=== PATIENT | female | born 1980 | race African-American/Black ===

== ENCOUNTER 2024-01-21 14:29 | Inpatient (IN) | payer OTHER ==
[2024-01-21 15:22] VITALS: BMI 22.1
[2024-01-21] MEDS ORDERED: POLYETHYLENE GLYCOL (HEALTHYLAX) 3350 17 GM PACKET PO PRN (17:40)
[2024-01-21] MEDS ORDERED: IBUPROFEN 400 MG TABLET (FP) PO PRN (17:40)
[2024-01-21] MEDS ORDERED: NICOTINE POLACRILEX 2 MG LOZENGE BC PRN (17:40)
[2024-01-21] MEDS ORDERED: MAGNESIUM HYDROX 2400MG/30ML ORAL SUSPENSION 30 ML CUP PO PRN (17:40)
[2024-01-21] MEDS ORDERED: LOPERAMIDE HCL 2 MG CAPSULE PO PRN (17:40)
[2024-01-21] MEDS ORDERED: P-EPHED 60MG/TRIPROLIDI 2.5MG TABLET PO PRN (17:40)
[2024-01-21] MEDS ORDERED: BENZONATATE 200 MG CAPSULE PO PRN (17:40)
[2024-01-21] MEDS ORDERED: hydrOXYzine PAMOATE 25 MG CAPSULE (FP) PO PRN (17:40)
[2024-01-21] MEDS ORDERED: MAG HYDROX/AL HYDROX/SIMETH 30 ML UNIT-DOSE CUP PO PRN (17:40)
[2024-01-21] MEDS ORDERED: BENZOCAINE/MENTHOL (CHLORASEPTIC ) LOZENGE MM PRN (17:40)
[2024-01-21] MEDS ORDERED: guaiFENesin 600 MG TABLET.ER (FP) PO PRN (17:40)
[2024-01-21] MEDS ORDERED: amLODIPine BESYLATE 5 MG TABLET (FP) ONE (18:37)
[2024-01-21] MEDS: amLODIPine BESYLATE 5 MG TABLET (FP) PO ONE (18:39)
[2024-01-21] MEDS ORDERED: TUBERCULIN PPD 5 TU/0.1ML SYRINGE (IN PATIENT USE ONLY) ID ONE (21:41)
[2024-01-21] MEDS: THIAMINE 100 MG TABLET PO SCH (22:39)
[2024-01-21] MEDS: MELATONIN 5 MG TABLETS PO SCH (22:39)
[2024-01-22 10:24] LABS: HEMATOCRIT 36.3 % (32.4-45.2); HEMOGLOBIN 12.1 GM/dL (10.7-15.3); MCH 30.9 pg (25.7-33.7); MCHC 33.3 g/dl (32.0-36.0); MEAN PLT VOLUME 8.2 fl (7.5-11.1); PLATELET COUNT 284 10^3/uL (134-434); RDW 15.5 % (11.6-15.6); WHITE BLOOD COUNT 6.8 K/mm3 (4.0-10.0)
[2024-01-22] MEDS: PRENATAL VITAMINS W/ FOLIC ACID TABLET (FP) PO SCH (10:43)
[2024-01-22] MEDS: TUBERCULIN PPD 5 TU/0.1ML SYRINGE (IN PATIENT USE ONLY) ID ONE (10:49)
[2024-01-22 11:40] LABS: CHLORIDE 109 mmol/L (98-107); POTASSIUM 3.7 mmol/L (3.5-5.1); SODIUM 140 mmol/L (136-145)
[2024-01-22 12:04] LABS: GLUCOSE,RANDOM 104 mg/dL (74-106)
[2024-01-22 12:05] LABS: CALCIUM 8.3 mg/dL (8.5-10.1)
[2024-01-22 12:06] LABS: ALBUMIN 2.8 g/dl (3.4-5.0); ANION GAP 8 mmol/L (4-13); BLOOD UREA NITROGEN 11.1 mg/dL (7-18); CO2 23 mmol/L (21-32)
[2024-01-22 12:07] LABS: CREATININE 0.7 mg/dL (0.55-1.3); SGPT/ALT 26 U/L (13-61)
[2024-01-22 12:09] LABS: BILIRUBIN,TOTAL 0.2 mg/dL (0.2-1); SGOT/AST 16 U/L (15-37); TOT PROT 6.6 g/dl (6.4-8.2)
[2024-01-22 12:10] LABS: ALK PHOS 82 U/L (45-117)
[2024-01-22 12:19] LABS: SYPHILIS W/ RPR CONF NON-REACTIVE (NONREACTIVE)
[2024-01-22] MEDS: QUEtiapine FUMARATE 200 MG TABLET PO SCH (21:46)
[2024-01-24] MEDS ORDERED: BISMUTH SUBSALICYLATE 262 MG/15 ML BTL PO PRN (14:38)
[2024-01-24] MEDS ORDERED: DICYCLOMINE HCL 10 MG CAPSULE PO PRN (14:38)
[2024-01-24] MEDS ORDERED: guaiFENesin 600 MG TABLET.ER (FP) PO PRN (14:38)
[2024-01-24] MEDS ORDERED: ONDANSETRON *ODT* 4 MG TABLET SL PRN (14:38)
[2024-01-24] MEDS ORDERED: BENZONATATE 200 MG CAPSULE PO PRN (14:38)
[2024-01-24] MEDS ORDERED: chlordiazePOXIDE HCL 10 MG CAPSULE PO SCH (15:19)
[2024-01-24] MEDS: hydrOXYzine PAMOATE 25 MG CAPSULE (FP) PO PRN (15:49)
[2024-01-24] MEDS: chlordiazePOXIDE HCL 10 MG CAPSULE PO SCH ×2 (15:50→15:53)
[2024-01-24] MEDS: METHOCARBAMOL 500 MG TABLET PO PRN (15:50)
[2024-01-24 16:59] LABS: EPI CELLS 11 /uL (0-25.1); HYALINE CASTS 0 /uL (0-3.1); PH,URINE 7.5 (5.0-8.0); URINE APPEARANCE CLEAR; URINE BACTERIA 97 /uL (0-1359); URINE BILIRUBIN NEGATIVE (NEGATIVE); URINE COLOR YELLOW; URINE GLUCOSE (UA) NEGATIVE (NEGATIVE); URINE KETONE NEGATIVE (NEGATIVE); URINE LEUK ESTERASE NEGATIVE (NEGATIVE); URINE NITRITE NEGATIVE (NEGATIVE); URINE PROTEIN NEGATIVE (NEGATIVE); URINE RBC 7 /uL (0-23.9); URINE UROBILINOGEN 0.2 mg/dL (0.2-1.0); URINE WBC 2 /uL (0-25.8)
[2024-01-25] MEDS: chlordiazePOXIDE HCL 10 MG CAPSULE PO SCH (05:54)
[2024-01-25 10:49] LABS: INR 0.86 (0.83-1.09); PROTHROMBIN TIME (PATIENT) 9.9 SEC (9.7-13.0)
[2024-01-26] MEDS: chlordiazePOXIDE HCL 10 MG CAPSULE PO ONE (06:05)
[2024-01-26] MEDS: IBUPROFEN 600 MG TABLET (FP) PO PRN (13:44)
[2024-01-26] MEDS: LACTULOSE 20 GM/30 ML UDC (FOR ORAL USE ONLY) PO SCH (13:44)
[2024-01-28] MEDS: NICOTINE POLACRILEX 2 MG GUM BUC PRN (15:49)
[2024-01-28] MEDS: NICOTINE POLACRILEX 4 MG GUM BUC PRN (19:10)
[2024-01-30] MEDS: BACLOFEN 10 MG TABLET (FP) PO SCH (11:09)
[2024-01-31] MEDS: CHOLECALCIFEROL (VIT D3) 400 UNIT (10 MCG) TABLET PO SCH (18:00)
[2024-01-31] MEDS: QUEtiapine FUMARATE 300 MG TABLET PO SCH (21:10)
[2024-02-02 06:47] VITALS: RESP 18
[2024-02-03] MEDS ORDERED: ALBUTEROL SULFATE 0.021% (0.63 MG/3 ML) VIAL.NEB NEB PRN (11:59)
[2024-02-03] MEDS: ALBUTEROL SO4 HFA INHALER IH PRN (15:49)
[2024-02-04] MEDS: ACETAMINOPHEN 325 MG TABLET (FP) PO PRN (14:36)
[2024-02-04] MEDS: METHYL SALICYLATE/MENTHOL 30 GM TUBE TP SCH (15:04)
[2024-02-07] MEDS: NICOTINE POLACRILEX 4 MG LOZENGE BC PRN (21:01)
[2024-02-09 07:05] VITALS: TEMP 97.6
[2024-02-10 07:00] VITALS: BP 134/83; PULSE 90
== END 2024-02-10 10:15 | disposition home or self-care (01) | DRG 772 ==
LOC: YASAS 14:29 → Y3NR 18:20 → Y5N 01-24 13:00
PROVIDERS: ADMIT Allergy & Immunology; ATTEND Psychiatry & Neurology Pain Medicine
PROC: HZ42ZZZ Group Counseling for Substance Abuse Treatment, Cognitive-Behavioral (ICD-10-PCS; principal; 2024-01-21)
DX: F10.20 Alcohol dependence, uncomplicated (principal); F14.20 Cocaine dependence, uncomplicated; F17.210 Nicotine dependence, cigarettes, uncomplicated; F19.982 Other psychoactive substance use, unspecified with psychoactive substance-induced sleep disorder; F19.94 Other psychoactive substance use, unspecified with psychoactive substance-induced mood disorder; I10 Essential (primary) hypertension; E72.20 Disorder of urea cycle metabolism, unspecified; I45.81 Long QT syndrome; Z88.0 Allergy status to penicillin; Z88.8 Allergy status to other drugs, medicaments and biological substances
CPT/HCPCS: 36415; 71046-TC-FY; 80053; 80305; 80307; 81003; 81025; 82140; 82652; 83735; 85027; 85610; 86780; 86803; 87811; 93005; 93010; J0475

== ENCOUNTER 2024-04-25 18:53 | Inpatient (IN) | payer OTHER ==
[2024-04-25 19:45] VITALS: BMI 25.1
[2024-04-25] MEDS ORDERED: MAG HYDROX/AL HYDROX/SIMETH 30 ML UNIT-DOSE CUP PO PRN (21:23)
[2024-04-25] MEDS ORDERED: MAGNESIUM HYDROX 2400MG/30ML ORAL SUSPENSION 30 ML CUP PO PRN (21:23)
[2024-04-25] MEDS ORDERED: NALOXONE (NYS OPIOID OVERDOSE PROGRAM) 4 MG/0.1 ML SPRAY NS PRN (21:23)
[2024-04-25] MEDS ORDERED: ACETAMINOPHEN 325 MG TABLET (FP) PO PRN (21:23)
[2024-04-25] MEDS ORDERED: ONDANSETRON *ODT* 4 MG TABLET SL PRN (21:23)
[2024-04-25] MEDS ORDERED: guaiFENesin 600 MG TABLET.ER (FP) PO PRN (21:23)
[2024-04-25] MEDS ORDERED: POLYETHYLENE GLYCOL (HEALTHYLAX) 3350 17 GM PACKET PO PRN (21:23)
[2024-04-25] MEDS ORDERED: BENZOCAINE/MENTHOL (CHLORASEPTIC ) LOZENGE MM PRN (21:23)
[2024-04-25] MEDS ORDERED: BISMUTH SUBSALICYLATE 524 MG/30 ML PO PRN (21:23)
[2024-04-25] MEDS ORDERED: NICOTINE POLACRILEX 2 MG GUM BUC PRN (21:23)
[2024-04-25] MEDS ORDERED: IBUPROFEN 400 MG TABLET (FP) PO PRN (21:23)
[2024-04-25] MEDS ORDERED: LOPERAMIDE HCL 2 MG CAPSULE PO PRN (21:23)
[2024-04-25] MEDS ORDERED: hydrOXYzine PAMOATE 25 MG CAPSULE (FP) PO PRN (21:23)
[2024-04-25] MEDS ORDERED: IBUPROFEN 600 MG TABLET (FP) PO PRN (21:23)
[2024-04-25] MEDS ORDERED: DICYCLOMINE HCL 10 MG CAPSULE PO PRN (21:23)
[2024-04-25] MEDS ORDERED: NALOXONE (NARCAN) HCL 4 MG/0.1 ML SPRAY NS PRN (21:23)
[2024-04-25] MEDS ORDERED: BENZONATATE 200 MG CAPSULE PO PRN (21:23)
[2024-04-25] MEDS ORDERED: chlordiazePOXIDE HCL 25 MG CAPSULE PO PRN (21:26)
[2024-04-25] MEDS ORDERED: chlordiazePOXIDE HCL 25 MG CAPSULE ONE (22:40)
[2024-04-25] MEDS ORDERED: MELATONIN 5 MG TABLETS ONE (22:41)
[2024-04-25] MEDS: chlordiazePOXIDE HCL 25 MG CAPSULE PO SCH (22:46)
[2024-04-25] MEDS: THIAMINE 100 MG TABLET PO SCH (22:47)
[2024-04-25] MEDS: MELATONIN 5 MG TABLETS PO SCH (22:47)
[2024-04-26] MEDS: ALBUTEROL SO4 HFA INHALER IH PRN (10:31)
[2024-04-26] MEDS: NICOTINE 21 MG/24 HOURS TOPICAL PATCH TD SCH (10:32)
[2024-04-26] MEDS: PRENATAL VITAMINS W/ FOLIC ACID TABLET (FP) PO SCH (10:32)
[2024-04-26] MEDS: METHOCARBAMOL 500 MG TABLET PO PRN (10:33)
[2024-04-26 11:01] LABS: CHLORIDE 105 mmol/L (98-107); POTASSIUM 3.1 mmol/L (3.5-5.1); SODIUM 138 mmol/L (136-145)
[2024-04-26 11:03] LABS: HEMATOCRIT 36.5 % (32.4-45.2); HEMOGLOBIN 12.1 GM/dL (10.7-15.3); MCH 31.1 pg (25.7-33.7); MCHC 33.2 g/dl (32.0-36.0); MEAN CELL VOLUME 93.5 fl (80-96); MEAN PLT VOLUME 8.3 fl (7.5-11.1); PLATELET COUNT 265 10^3/uL (134-434); RDW 15.1 % (11.6-15.6); WHITE BLOOD COUNT 6.6 K/mm3 (4.0-10.0)
[2024-04-26 11:04] LABS: ALBUMIN 2.9 g/dl (3.4-5.0); ANION GAP 7 mmol/L (4-13); BLOOD UREA NITROGEN 14.7 mg/dL (7-18); CALCIUM 8.3 mg/dL (8.5-10.1); CO2 26 mmol/L (21-32)
[2024-04-26 11:05] LABS: GLUCOSE,RANDOM 175 mg/dL (74-106)
[2024-04-26 11:07] LABS: SGOT/AST 13 U/L (15-37); SGPT/ALT 23 U/L (13-61)
[2024-04-26 11:08] LABS: CREATININE 0.8 mg/dL (0.55-1.3)
[2024-04-26 11:09] LABS: BILIRUBIN,TOTAL 0.3 mg/dL (0.2-1); TOT PROT 6.3 g/dl (6.4-8.2)
[2024-04-26 11:10] LABS: ALK PHOS 77 U/L (45-117)
[2024-04-26] MEDS: POTASSIUM CHLORIDE ORAL LIQUID 20 MEQ/15 ML PO ONE ×2 (14:56→18:14)
[2024-04-26] MEDS: QUEtiapine FUMARATE 100 MG TABLET (FP) PO SCH (22:31)
[2024-04-27] MEDS: chlordiazePOXIDE HCL 25 MG CAPSULE PO SCH (05:58)
[2024-04-28] MEDS ORDERED: chlordiazePOXIDE HCL 10 MG CAPSULE PO PRN
[2024-04-28] MEDS: chlordiazePOXIDE HCL 10 MG CAPSULE PO SCH (05:44)
[2024-04-28 09:44] VITALS: RESP 18
[2024-04-28 13:26] VITALS: BP 154/95; PULSE 79; TEMP 98.2
[2024-04-28] MEDS: amLODIPine BESYLATE 5 MG TABLET (FP) PO SCH (14:37)
[2024-04-29] MEDS ORDERED: chlordiazePOXIDE HCL 10 MG CAPSULE PO SCH (05:00)
[2024-04-30] MEDS ORDERED: chlordiazePOXIDE HCL 10 MG CAPSULE PO ONE (05:00)
== END 2024-04-28 17:35 | disposition left against medical advice (07) | DRG 770 ==
LOC: YASAS 18:53 → Y6N 21:37
PROVIDERS: ADMIT Allergy & Immunology; ATTEND Surgery
PROC: HZ2ZZZZ Detoxification Services for Substance Abuse Treatment (ICD-10-PCS; principal; 2024-04-25)
DX: F10.230 Alcohol dependence with withdrawal, uncomplicated (principal); F14.20 Cocaine dependence, uncomplicated; F17.210 Nicotine dependence, cigarettes, uncomplicated; F19.282 Other psychoactive substance dependence with psychoactive substance-induced sleep disorder; F19.24 Other psychoactive substance dependence with psychoactive substance-induced mood disorder; F39 Unspecified mood [affective] disorder; F41.9 Anxiety disorder, unspecified; E87.6 Hypokalemia; I10 Essential (primary) hypertension; R73.9 Hyperglycemia, unspecified; Z86.19 Personal history of other infectious and parasitic diseases
CPT/HCPCS: 36415; 80053; 80305; 80307; 81025; 83036; 84132; 85027; 86780; 93005; 93010

== ENCOUNTER 2024-06-22 16:39 | Inpatient (IN) | payer OTHER ==
[2024-06-22 17:37] VITALS: BMI 24.9
[2024-06-22] MEDS ORDERED: AMMONIUM LACTATE 12% LOTION 225 GM BOTTLE TP PRN (20:01)
[2024-06-22] MEDS ORDERED: BENZONATATE 200 MG CAPSULE PO PRN (20:01)
[2024-06-22] MEDS ORDERED: NICOTINE POLACRILEX 2 MG GUM BUC PRN (20:01)
[2024-06-22] MEDS ORDERED: hydrOXYzine PAMOATE 25 MG CAPSULE (FP) PO PRN (20:01)
[2024-06-22] MEDS ORDERED: MAGNESIUM HYDROX 2400MG/30ML ORAL SUSPENSION 30 ML CUP PO PRN (20:01)
[2024-06-22] MEDS ORDERED: BENZOCAINE/MENTHOL (CHLORASEPTIC ) LOZENGE MM PRN (20:01)
[2024-06-22] MEDS ORDERED: IBUPROFEN 400 MG TABLET (FP) PO PRN (20:01)
[2024-06-22] MEDS ORDERED: NALOXONE (NARCAN) HCL 4 MG/0.1 ML SPRAY NS PRN (20:01)
[2024-06-22] MEDS ORDERED: LOPERAMIDE HCL 2 MG CAPSULE PO PRN (20:01)
[2024-06-22] MEDS ORDERED: IBUPROFEN 600 MG TABLET (FP) PO PRN (20:01)
[2024-06-22] MEDS ORDERED: ACETAMINOPHEN 325 MG TABLET (FP) PO PRN (20:01)
[2024-06-22] MEDS ORDERED: NICOTINE POLACRILEX 2 MG LOZENGE BC PRN (20:01)
[2024-06-22] MEDS ORDERED: guaiFENesin 600 MG TABLET.ER (FP) PO PRN (20:01)
[2024-06-22] MEDS ORDERED: POLYETHYLENE GLYCOL (HEALTHYLAX) 3350 17 GM PACKET PO PRN (20:01)
[2024-06-22] MEDS ORDERED: MAG HYDROX/AL HYDROX/SIMETH 30 ML UNIT-DOSE CUP PO PRN (20:01)
[2024-06-22] MEDS ORDERED: ALBUTEROL SO4 HFA INHALER IH PRN (20:03)
[2024-06-22] MEDS ORDERED: amLODIPine BESYLATE 5 MG TABLET (FP) ONE (21:49)
[2024-06-22] MEDS: amLODIPine BESYLATE 5 MG TABLET (FP) PO ONE (21:57)
[2024-06-22] MEDS: THIAMINE 100 MG TABLET PO SCH (23:09)
[2024-06-22] MEDS: MELATONIN 5 MG TABLETS PO SCH (23:10)
[2024-06-23] MEDS: PRENATAL VITAMINS W/ FOLIC ACID TABLET (FP) PO SCH (10:03)
[2024-06-23 12:28] LABS: HEMATOCRIT 36.1 % (32.4-45.2); MCHC 33.3 g/dl (32.0-36.0); MEAN CELL VOLUME 90.1 fl (80-96); MEAN PLT VOLUME 8.3 fl (7.5-11.1); PLATELET COUNT 255 10^3/uL (134-434); RBC 4.01 M/mm3 (3.60-5.2); RDW 16.7 % (11.6-15.6); WHITE BLOOD COUNT 6.7 K/mm3 (4.0-10.0)
[2024-06-23 12:31] LABS: CHLORIDE 104 mmol/L (98-107); POTASSIUM 3.1 mmol/L (3.5-5.1); SODIUM 138 mmol/L (136-145)
[2024-06-23 12:39] LABS: ANION GAP 10 mmol/L (4-13); BLOOD UREA NITROGEN 9.9 mg/dL (7-18); CALCIUM 8.8 mg/dL (8.5-10.1); CO2 24 mmol/L (21-32); GLUCOSE,RANDOM 145 mg/dL (74-106)
[2024-06-23 12:40] LABS: SGOT/AST 25 U/L (15-37); SGPT/ALT 28 U/L (13-61)
[2024-06-23 12:42] LABS: BILIRUBIN,TOTAL 0.4 mg/dL (0.2-1); CREATININE 0.9 mg/dL (0.55-1.3); TOT PROT 6.6 g/dl (6.4-8.2)
[2024-06-23 12:43] LABS: ALK PHOS 84 U/L (45-117)
[2024-06-23] MEDS: LIDOCAINE 5% TOPICAL PATCH TP SCH (17:52)
[2024-06-23 18:44] LABS: EPI CELLS >36 /uL (0-25.1); HYALINE CASTS 5 /uL (0-3.1); URINE APPEARANCE TURBID; URINE BACTERIA 1365 /uL (0-1359); URINE BILIRUBIN NEGATIVE (NEGATIVE); URINE COLOR DK YELLOW; URINE GLUCOSE (UA) NEGATIVE (NEGATIVE); URINE KETONE TRACE (NEGATIVE); URINE LEUK ESTERASE TRACE (NEGATIVE); URINE NITRITE NEGATIVE (NEGATIVE); URINE PROTEIN TRACE (NEGATIVE); URINE RBC 8 /uL (0-23.9); URINE WBC 70 /uL (0-25.8)
[2024-06-23] MEDS: QUEtiapine FUMARATE 200 MG TABLET PO SCH (21:10)
[2024-06-23] MEDS: POTASSIUM CHLORIDE TABS 20 MEQ TABLET.ER (FP) PO SCH (21:10)
[2024-06-23] MEDS: LIDOCAINE PATCH REMOVAL MC SCH (21:12)
[2024-06-24 22:04] VITALS: PULSE 83
[2024-06-25 06:51] VITALS: BP 146/88; RESP 16; TEMP 98.7
[2024-06-25] MEDS: NALOXONE (NYS OPIOID OVERDOSE PROGRAM) 4 MG/0.1 ML SPRAY NS SCH (14:04)
== END 2024-06-25 13:35 | disposition left against medical advice (07) | DRG 770 ==
LOC: YASAS 16:39 → Y5N 21:45
PROVIDERS: ADMIT Allergy & Immunology; ATTEND Psychiatry & Neurology Pain Medicine
PROC: HZ42ZZZ Group Counseling for Substance Abuse Treatment, Cognitive-Behavioral (ICD-10-PCS; principal; 2024-06-22)
DX: F10.20 Alcohol dependence, uncomplicated (principal); F14.20 Cocaine dependence, uncomplicated; F17.210 Nicotine dependence, cigarettes, uncomplicated; F19.282 Other psychoactive substance dependence with psychoactive substance-induced sleep disorder; F19.24 Other psychoactive substance dependence with psychoactive substance-induced mood disorder; F39 Unspecified mood [affective] disorder; I10 Essential (primary) hypertension; J45.909 Unspecified asthma, uncomplicated; M54.50 Low back pain, unspecified; G89.29 Other chronic pain; Z59.02 Unsheltered homelessness
CPT/HCPCS: 36415; 80053; 80307; 81003; 85027; 86780; 93005; 93010